=== PATIENT | female | born 1955 | race Caucasian/White ===

== ENCOUNTER → 2016-07-25 | Day surgery (SDC) | payer OTHER ==
[~2016-07-25] MED LIST: ALBUTEROL INH; ALLEGRA; ALLEGRA PO; ALPHAGAN; ALPHAGAN P5 ML OD; ALPHAGAN P5 ML OP; ASPIRIN EC81 M1 PO; ASPIRIN PO; ASPIRIN81 MG PO; BIMATOPROST; BONIVA3 MG/3 ML IV; CALCIUM + D 6001 TA1 PO; CARDIZEM PO; CARTIA XT120 MG PO; CLINORIL PO; COSOPT PF EYE1 EACH OP; DIAZEPAM10 MG PO; DILTIAZEM 24HR120 M1 PO; DILTIAZEM HCL120 MG PO; FISH OIL 1,0001 CA2 PO; FISH OIL 1,0001 CAP PO; FISH OIL-OMEGA 3 PO; FLEXERIL10 MG PO; FORMULA TOP; FRESHKOTE15 ML OP; GABAPENTIN800 MG PO; LAMICTAL PO; LAMICTAL XR100 MG PO; LASIX PO; LASIX20 MG PO; LEVOTHROID; LIDODERM 5% PATCH; LIDODERM30 EA TOP; LOTEMAX5 ML OD; LOW DOSE ASPIRI81 M1 PO; LUMIGAN2.5 ML OD; LUMIGAN2.5 ML OP; METOPROLOL PO; METOPROLOL TAR25 MG PO; MULTI VITAMIN1 EACH PO; MULTI-VITAMIN1 EAC1 PO; MULTIVITAMIN; NEURONTIN; NEURONTIN800 MG PO; OMEPRAZOLE20 M1 PO; OMEPRAZOLE40 M1 PO; OPTH; OXYCODON HCL-1 UDTAB PO; PAROXETINE HCL40 M1 PO; PATADAY2.5 ML OP; PATADAY2.5 ML OU; PAXIL 40 MG; PAXIL40 MG PO; PERCOCET 10-325MG; PERCOCET 10/31 UDTA1 PO; PRED MILD5 ML OS; PREDNISOLONE 1%; PREDNISONE PO; PREMARIN PO; PREMARIN0.3 MG PO; PREMARIN0.45 MG PO; PRILOSEC PO; PRILOSEC20 MG PO; PROLIA; PROLIA60 MG/1 ML SQ; PROVERA INJ; PROVERA SQ; REFRESH EYE DRO50 EA OP; REQUIP PO; REQUIP XL4 MG PO; REQUIP4 MG PO; RESTASIS; RESTASIS32 EA OP; RESTASIS32 EA OU; SYNTHROID0.05 MG PO; TIMOPTIC2.5 ML OD; TIMOPTIC2.5 ML OP; TIROSINT25 MCG PO; TOPROL XL PO; VALIUM; VALIUM10 MG PO; VASOCIDIN O5 ML OPTH OS; VOLTAREN; VOLTAREN100 GM TP; VYTORIN; VYTORIN 10-10 M1 TAB PO; VYTORIN 10/10 M1 TAB PO; VYTORIN 10/10 T1 TAB PO; [UNRECOGNIZED DRUG - OTHER]; [UNRECOGNIZED DRUG - OTHER] TP
--- NOTE | ~2016-07-25 | OR ---
Unit #: [id number] #: [id number] Patient: TEJA LUJAN [id number] [address] [place], [place] [address] [id number] O MR#: [id number] NAME: TEJA LUJAN ROOM: Date of Procedure: 07/25/2016 Admission Date: 07/25/2016 Surgeon: Trevor Esteves M.D. : 1955 Attending Physician: Trevor Esteves M.D. Primary Care Physician: Mirtha Sanders M.D. OPERATIVE REPORT PREOPERATIVE DIAGNOSES Neck pain, cervical spondylosis and cervical facet disease. POSTOPERATIVE DIAGNOSES Neck pain, cervical spondylosis and cervical facet disease. PROCEDURE PERFORMED Cervical facet injection x2 levels with intravenous sedation under fluoroscopic guidance for needle localization. HISTORY A 61-year-old female with return of neck pain associated with known severe nonsurgical pathology of neck consistent with facet disease at the C2-3 and C3-4 levels. Last facet injections done here were done 6 months ago. The patient did well until recently. DESCRIPTION OF PROCEDURE The patient was placed in a seated position. Standard monitors were applied. Then, 2 mg of Versed were given for sedation and anxiolysis, which were adequate. Vital signs remained stable. Sterile prep and drape then of the cervical area was performed. The skin then overlying the right-sided C2-3 and C3-4 facet joints were localized with 1% lidocaine. A 22-gauge Quincke point needle was then advanced with fluoroscopic guidance to bring the edge of the needle to the edges of those respective C2-3 and C3-4 facet joints. After confirming proper positioning, a dose of 1 mL of a mixture of 80 mg of Depo-Medrol and 3 mL of 0.25% bupivacaine were deposited, 1 mL in each of the facet. The exact same procedure was then repeated on the left at the C2-3 and C3-4 levels. No complaints of pain or paresthesia at any of these needle injection sites. The exact same dosing was used on the left. The needles were flushed and removed. The patient tolerated the procedure well and was discharged to the recovery room in stable condition. Dictated by... Trevor Esteves M.D. SAPPHIRE/jimmy TD: 07/25/2016 09:36 JOB #: [id number] CC: [facility] Unit #: [id number] #: [id number] Patient: LETEJA L OPERATIVE REPORT Page 1 of 1 X Trevor Esteves MD X PROCEDURE OPERATIVE NOTE
== END | disposition home or self-care (01) ==
LOC: CCSC 07:46
DX: M47.812 Spondylosis without myelopathy or radiculopathy, cervical region (principal); M53.82 Other specified dorsopathies, cervical region; I10 Essential (primary) hypertension; K21.9 Gastro-esophageal reflux disease without esophagitis; E66.01 Morbid (severe) obesity due to excess calories; M19.90 Unspecified osteoarthritis, unspecified site; F32.9 Major depressive disorder, single episode, unspecified
CPT/HCPCS: J1040; J2250